=== PATIENT | male | born 1995 | race Caucasian/White ===

== ENCOUNTER 2019-01-10 22:57 | Emergency (ER) | payer OTHER ==
--- NOTE | 2019-01-11 00:16 | RAD ---
THREE VIEWS LEFT HAND 01/10/19 HISTORY: Injury to finger with sharp object with bleeding. AP, lateral and oblique views left hand obtained. The proximal wrist is covered by a large metallic w atch. This area cannot be assessed. The rest of the left hand is unremarkable. No evidence of radiopaque foreign body seen within the soft tissues. Soft tissue injury cannot be ass essed by plain film radiography. IMPRESSION: Normal three views left hand with above limitations. POS: [facility]
== END 2019-01-11 | disposition home or self-care (01) ==
LOC: ERS 22:57
DX: S61.211A Laceration without foreign body of left index finger without damage to nail, initial encounter (principal); W45.8XXA Other foreign body or object entering through skin, initial encounter
CPT/HCPCS: 12001